=== PATIENT | male | born 1980 | race Caucasian/White ===

== ENCOUNTER 2018-03-19 17:54 | Emergency (ER) | payer BC ==
[~2018-03-19] VITALS: Ht 172.7 cm; Wt 93.3 kg
[2018-03-19 18:19] VITALS: Ht 172.7 cm; Wt 93.3 kg
[2018-03-19] MEDS ORDERED: KETOROLAC 30 MG INJ IV STA (20:33)
[2018-03-19] MEDS ORDERED: ASPIRIN 325 MG TAB PO STA (20:33)
--- NOTE | 2018-03-19 20:33 | ERD ---
ER Documentation Chief Complaint Chief Complaint CP X 2 WEEKS. NO CARDIAC HX HPI This is a 38-year-old male with no past medical history who presents to the emergency department with intermittent chest pain for 2 weeks. The patient indicates that the chest pain is a stabbing-like pain present on both the left and right chest wall. The patient indicates that the pain will last for several hours and then spontaneously resolved. He also indicates exacerbated whenever he moves his bilateral upper extremities. 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 He states he went to a clinic today and was instructed to come to the emergency department to be further evaluated. He does not smoke tobacco. He has no family history of coronary artery disease. He denies illicit drug use. He denies any recent normal blunt or penetrating chest trauma. He has no shortness of breath at rest or exertion denies any recent travel. He denies a productive or nonproductive cough. He denies any associated symptoms nausea vomiting or diaphoresis. ROS All systems reviewed and are negative except as per history of present illness. Physical Exam Vitals Vital Signs Date Temp Pulse Resp B/P (MAP) Pulse Ox O2 O2 Flow FiO2 Time Delivery Rate 03/19/18 97.4 74 17 131/79 99 18:19 (96) Physical Exam Constitutional:Well-developed. Well-nourished. HEENT:Normocephalic. Atraumatic.Pupils were equal round reactive to light. Moist mucous membranes.No tonsillar exudates. Neck: No nuchal rigidity. No lymphadenopathy. No posterior cervical spine tenderness or step-offs. Respiratory: Not using accessory muscles of respiration.Lungs were clear to auscultation bilaterally. No rhonchi. No rales. No wheezing. Cardiovascular: Regular rate regular rhythm.No murmurs. No rubs were appreciated.S1, S2 normal. Distal pulses are palpable 2+ bilaterally. Reproducible bilateral chest wall tenderness with no crepitus no ecchymosis no flail chest GI: Abdomen was soft. Nontender. Non Distended. No pulsatile abdominal masses or bruits. No rebound. No guarding. Bowel sounds were present and normal. Muscle skeletal: Full range of motion of both the upper and lower extremities bilaterally.Normal muscle tone.No assymetrical calf tenderness or swelling. Skin: No petechia, no purpura. No lesions on the palms or the soles of the feet. No maculopapular rash. NEURO: Patient was alert, awake, orientated x3.No facial droop. Gait observed and normal with no ataxia.Speech had regular rate and rhythm. No focal neurological deficits. Procedures/MDM The patient presented to the emergency department complaining of chest pain. 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 The patient received IV Toradol. Aspirin had been given prior but did not improve his symptoms of chest pain 12 Lead EKG tracing ordered and reviewed by myself showed: Normal sinus rhythm of 67 bpm and no arrhythmia. MD interval normal. QRS duration normal. No ST segment elevation No ST segment depression. No changes consistent with acute ischemia. The patients chest pain was reproduced by palpation and horizontal flexion of the arms. It was my clinical impression that the pain was a result of inflammation of the skin and subcutaneous structures of the chest wall versus myocardial ischemia. I felt the patient had low-risk chest pain and could therefore be safely discharged with close follow-up. Departure Diagnosis: Primary Impression: Costochondritis, acute Condition: Fair CHELITA SHARPE MD Mar 19, 2018 20:33
[2018-03-19] MEDS ORDERED: IBUP800T48 PO (20:38)
[2018-03-19 22:29] VITALS: BP 116/82; PULSE 62; RESP 20
== END 2018-03-19 22:29 | disposition home or self-care (01) ==
LOC: E/R 17:54
DX: M94.0 Chondrocostal junction syndrome [Tietze] (principal)
CPT/HCPCS: 36415; 71045; 80053; 82550; 82553; 83880; 84484; 85025; 85610; 85730; 93005; 96374; 99285; J1885